=== PATIENT | female | born 1985 | race African-American/Black ===

== ENCOUNTER 2021-08-09 23:33 | Emergency (ER) | payer SELFPAY ==
[2021-08-10] MEDS ORDERED: Dexamethasone 10 MG/ML VIAL ONE (00:02)
[2021-08-10] MEDS ORDERED: Labetalol HCl 100 MG/20 ML VIAL ONE (00:36)
== END 2021-08-10 01:23 | disposition home or self-care (01) ==
LOC: CSHERS 23:33
DX: J45.901 Unspecified asthma with (acute) exacerbation (principal); I10 Essential (primary) hypertension; F17.210 Nicotine dependence, cigarettes, uncomplicated
CPT/HCPCS: 94640; 96374; J1100; J7620

== ENCOUNTER 2021-11-07 09:15 | Emergency (ER) | payer SELFPAY ==
[2021-11-07] MEDS ORDERED: predniSONE 20 MG TAB ONE (10:00)
[2021-11-07] MEDS ORDERED: hydrALAZINE 20 MG/ML VIAL ONE (10:00)
[2021-11-07] MEDS ORDERED: Metoprolol Tartrate 5 MG/5 ML VIAL ONE (10:01)
[2021-11-07 10:18] LABS: ALT (SGPT) 7 U/L (8-55); AST (SGOT) 12 U/L (5-34); Albumin 3.8 g/dL (3.5-5.0); Alkaline Phosphatase 65 U/L (40-110); Anion Gap 15 mmol/L (10-20); BUN (Urea Nitrogen) 11 mg/dL (7.0-18.7); Bilirubin, Total 0.4 mg/dL (0.2-1.2); Calc. Creatinine Clearance 0 mL/min (70-130); Calcium 9.3 mg/dL (7.8-10.44); Carbon Dioxide 24 mmol/L (22-29); Chloride 107 mmol/L (98-107); Estimated GFR 98; Glucose 94 mg/dL (70-105); Potassium 3.9 mmol/L (3.5-5.1); Protein, Total 6.8 g/dL (6.0-8.3); Sodium 142 mmol/L (136-145)
[2021-11-07 10:24] LABS: Hemoglobin 11.4 g/dL (12.0-15.5); Mean Corpuscular HGB CONC 34.2 g/dL (32.0-36.0); Mean Corpuscular Hemoglobin 28.9 pg (27.0-33.0); Mean Corpuscular Volume 84.5 fl (81.6-98.3); Mean Platelet Volume 12.3 fl (7.4-10.4); Platelet Count 243 10x3/uL (150-450); Red Blood Cell (RBC) Count 3.94 10x6/uL (3.90-5.03); White Blood Cell (WBC) Count 4.6 10x3/uL (3.5-10.5)
[2021-11-07 10:27] LABS: Digoxin Less than 0.15 ng/mL (0.8-2.0)
[2021-11-07 10:29] LABS: MDiff Complete? YES
[2021-11-07 11:49] LABS: Eosinophils 7 % (0-10); Lymphocytes 26 % (21-51); Monocytes 13 % (0-10); Neutrophil 54 % (42-75)
[2021-11-07 11:55] LABS: Hypochromia SLIGHT = 6-15 cells (100X) (0-5/hpf); Platelet Morphology Comment Appears Adequate
== END 2021-11-07 11:40 | disposition home or self-care (01) ==
LOC: CSHERS 09:15
DX: J45.901 Unspecified asthma with (acute) exacerbation (principal); R00.2 Palpitations; I10 Essential (primary) hypertension; F17.210 Nicotine dependence, cigarettes, uncomplicated
CPT/HCPCS: 71045; 80053; 80162; 84484; 85025; 93005; 94640; 94760; 96374; 96375; J0360; J7512; J7620

== ENCOUNTER 2022-03-14 14:52 | Emergency (ER) | payer SELFPAY | END 2022-03-14 18:14 | disposition home or self-care (01) | LOC: CSHERS 14:52 | DX: J45.901 Unspecified asthma with (acute) exacerbation (principal); I10 Essential (primary) hypertension | CPT/HCPCS: 94640; 94760; J7620 ==

== ENCOUNTER 2022-12-23 01:36 | Emergency (ER) | payer SELFPAY | END 2022-12-23 03:50 | disposition home or self-care (01) | LOC: CSHERS 01:36 | DX: R07.9 Chest pain, unspecified (principal); I10 Essential (primary) hypertension; F17.210 Nicotine dependence, cigarettes, uncomplicated | CPT/HCPCS: 71045 ==

== ENCOUNTER 2024-02-13 00:30 | Emergency (ER) | payer SELFPAY ==
[2024-02-13] MEDS ORDERED: Dexamethasone 10 MG/ML VIAL ONE ×2 (00:48→00:51)
[2024-02-13] MEDS ORDERED: Ipratropium/Albuterol 3 ML NEB ONE (00:52)
== END 2024-02-13 01:28 | disposition home or self-care (01) ==
LOC: CSHERS 00:30
DX: J45.901 Unspecified asthma with (acute) exacerbation (principal); I10 Essential (primary) hypertension; F17.210 Nicotine dependence, cigarettes, uncomplicated; Z79.899 Other long term (current) drug therapy
CPT/HCPCS: 94640; 94760; 99284; J1100; J7620